=== PATIENT | female | born 1940 | race Native Hawaiian/Other Pacific Islander ===

== ENCOUNTER 2019-01-10 08:53 | Outpatient (CLI) | payer OTHER, BC | END 2019-01-10 20:29 | disposition home or self-care (01) | LOC: RESP 08:53 | DX: G62.89 Other specified polyneuropathies (principal); M54.16 Radiculopathy, lumbar region; I73.9 Peripheral vascular disease, unspecified | CPT/HCPCS: 95860; 95885; 95909 ==

== ENCOUNTER 2019-02-01 08:00 | Day surgery (SDC) | payer OTHER, BC ==
[~2019-02-01] VITALS: Ht 152.4 cm; Wt 77.0 kg
== END 2019-02-01 09:27 | disposition home or self-care (01) ==
LOC: OR 08:00
PROC: 3E0T3BZ Introduction of Anesthetic Agent into Peripheral Nerves and Plexi, Percutaneous Approach (ICD-10-PCS; principal; 2019-02-01)
PROC: 3E0T33Z Introduction of Anti-inflammatory into Peripheral Nerves and Plexi, Percutaneous Approach (ICD-10-PCS; 2019-02-01)
PROC: BR16YZZ Fluoroscopy of Lumbar Facet Joint(s) using Other Contrast (ICD-10-PCS; 2019-02-01)
DX: M47.817 Spondylosis without myelopathy or radiculopathy, lumbosacral region (principal)
CPT/HCPCS: J1100; J2001

== ENCOUNTER 2019-02-15 07:28 | Day surgery (SDC) | payer OTHER, BC ==
[~2019-02-15] VITALS: Ht 152.4 cm; Wt 76.7 kg
== END 2019-02-15 09:45 | disposition home or self-care (01) ==
LOC: OR 07:28
PROC: 3E0T3BZ Introduction of Anesthetic Agent into Peripheral Nerves and Plexi, Percutaneous Approach (ICD-10-PCS; principal; 2019-02-15)
PROC: 3E0T33Z Introduction of Anti-inflammatory into Peripheral Nerves and Plexi, Percutaneous Approach (ICD-10-PCS; 2019-02-15)
PROC: BR16YZZ Fluoroscopy of Lumbar Facet Joint(s) using Other Contrast (ICD-10-PCS; 2019-02-15)
DX: M47.817 Spondylosis without myelopathy or radiculopathy, lumbosacral region (principal)
CPT/HCPCS: J1100; J2001

== ENCOUNTER 2019-04-04 11:46 | Day surgery (SDC) | payer OTHER, BC | END 2019-04-04 14:05 | disposition home or self-care (01) | LOC: OR 11:46 | PROC: 3E0T3BZ Introduction of Anesthetic Agent into Peripheral Nerves and Plexi, Percutaneous Approach (ICD-10-PCS; principal; 2019-04-04) | PROC: 3E0T33Z Introduction of Anti-inflammatory into Peripheral Nerves and Plexi, Percutaneous Approach (ICD-10-PCS; 2019-04-04) | PROC: BR16YZZ Fluoroscopy of Lumbar Facet Joint(s) using Other Contrast (ICD-10-PCS; 2019-04-04) | DX: M47.817 Spondylosis without myelopathy or radiculopathy, lumbosacral region (principal) | CPT/HCPCS: J1100; J2001 ==

== ENCOUNTER 2019-06-13 07:36 | Day surgery (SDC) | payer OTHER, BC | END 2019-06-13 09:14 | disposition home or self-care (01) | LOC: OR 07:36 | PROC: 3E0R33Z Introduction of Anti-inflammatory into Spinal Canal, Percutaneous Approach (ICD-10-PCS; principal; 2019-06-13) | PROC: 3E0R3BZ Introduction of Anesthetic Agent into Spinal Canal, Percutaneous Approach (ICD-10-PCS; 2019-06-13) | DX: M53.3 Sacrococcygeal disorders, not elsewhere classified (principal); M46.1 Sacroiliitis, not elsewhere classified | CPT/HCPCS: J1020; J3490 ==